=== PATIENT | male | born 1960 | race Caucasian/White ===

== ENCOUNTER 2024-08-02 20:46 | Emergency (ER) | payer OTHER ==
[~2024-08-02] VITALS: Ht 175.3 cm; Wt 86.2 kg
[2024-08-02 21:12] VITALS: TEMP 98.3
[2024-08-02] MEDS: LIDOCAINE 4% PATCH TP STA (21:37)
[2024-08-02] MEDS: ACETAMINOPHEN 325 MG TAB PO ONE (21:37)
[2024-08-02] MEDS: TRAMADOL HCL 50 MG TAB PO ONE (22:08)
[2024-08-02] MEDS: KETOROLAC TROMETHAMINE 30 MG/ML VIAL IM STA (22:09)
[2024-08-02] MEDS: DEXAMETHASONE 4 MG TAB PO STA (22:09)
[2024-08-02 23:11] VITALS: PULSE 65; RESP 16
[2024-08-02] MEDS ORDERED: CYCLOBENZAPRINE10 MG PO (23:59)
[2024-08-02] MEDS ORDERED: NAPROXEN250 MG PO (23:59)
[2024-08-03 00:34] VITALS: BP 163/96; PULSE 60; RESP 18; TEMP 98; O2SAT 100
== END 2024-08-03 00:35 | disposition home or self-care (01) ==
LOC: ER 21:27
DX: M54.50 Low back pain, unspecified (principal); G89.29 Other chronic pain; E03.9 Hypothyroidism, unspecified
CPT/HCPCS: 72100; 99283; J1885; J8540

== ENCOUNTER 2024-08-07 19:25 | Emergency (ER) | payer OTHER ==
[~2024-08-07] VITALS: Ht 175.3 cm; Wt 86.2 kg
[~2024-08-07 19:25] MED LIST: CYCLOBENZAPRINE10 MG PO; NAPROXEN250 MG PO
[2024-08-07 19:41] VITALS: TEMP 98.7
[2024-08-07] MEDS: KETOROLAC TROMETHAMINE 60 MG/2 ML VIAL IM ONE (20:45)
[2024-08-07] MEDS: CYCLOBENZAPRINE HCL 10 MG TAB PO ONE (20:46)
[2024-08-07 23:00] VITALS: PULSE 59; RESP 20; O2SAT 97
== END 2024-08-07 23:30 | disposition home or self-care (01) ==
LOC: ER 19:49
DX: S30.0XXA Contusion of lower back and pelvis, initial encounter (principal); M54.6 Pain in thoracic spine; W18.39XA Other fall on same level, initial encounter; Y92.89 Other specified places as the place of occurrence of the external cause; E03.9 Hypothyroidism, unspecified; G89.29 Other chronic pain
CPT/HCPCS: 72128; 72131; 99283; J1885